=== PATIENT | male | born 1985 | race Hispanic/Latino ===

== ENCOUNTER → 2016-09-15 | Outpatient (REF) | payer OTHER | LOC: M LAB REF 21:25 | PROVIDERS: ATTEND Physician Assistant | DX: R30.0 Dysuria (principal); Z11.3 Encounter for screening for infections with a predominantly sexual mode of transmission ==

== ENCOUNTER → 2016-09-20 | Outpatient (REF) | payer OTHER ==
[2016-09-17 20:46] LABS: BACTERIA, URINE NONE SEEN; HYALINE CAST, URINE NONE SEEN /lpf (0-1); MICROSCOPIC EXAM PERFORMED; RBC, URINE 0-1 /hpf (0-3); SQUAMOUS EPITHELIAL CELL URINE SMALL AMOUNT /hpf (SMALL AMT); WBC, URINE 0-1 /hpf (0-3)
== END ==
LOC: M LAB REF 09:11
PROVIDERS: ATTEND Physician Assistant Medical
DX: Z11.3 Encounter for screening for infections with a predominantly sexual mode of transmission (principal)

== ENCOUNTER → 2016-10-15 | Outpatient (CLI) | payer OTHER ==
--- NOTE | 2016-10-15 10:07 | REP ---
CT of the abdomen pelvis without IV or bowel contrast: There are no comparisons. The visualized lung salgado are unremarkable except for dependent atelectasis. The unenhanced hepatic parenchyma is unremarkable. The gallbladder is nondistended and otherwise unremarkable. The unenhanced pancreas and spleen are unremarkable. The adrenals are unremarkable. There are no renal calculi. There is no hydronephrosis. The unenhanced kidneys are otherwise unremarkable. The ureters are unremarkable. There are no ureteral calculi. The bladder is unremarkable. The abdominal aorta, bowel and mesentery are unremarkable. Pelvis: The appendix is unremarkable. Prostate and seminal vesicles are unremarkable. No ascites or adenopathy. There is mild wall thickening of the rectosigmoid colon, nonspecific but possibly a colitis. Correlation with seven views recommended. The colon is otherwise unremarkable. Impression: Essentially negative CT scan of the abdomen pelvis except for mild wall thickening of the rectosigmoid colon . This is nonspecific but may represent colitis. Correlate with clinical findings. No hydronephrosis. No renal ureteral calculi. Signed by Yosvany Davey MD 10/15/2016 09:59 A
== END ==
LOC: M RAD 08:30
PROVIDERS: ATTEND Nurse Practitioner Women's Health
DX: R30.0 Dysuria (principal)